=== PATIENT | female | born 1940 | race Caucasian/White ===

== ENCOUNTER 2016-05-23 | Emergency (ER) | payer MEDICARE, BC ==
[~2016-05-23] MED LIST: ACCUPRIL PO; ADVIL PM CAPLE1 EACH PO; ASPIRIN PO; ATIVAN PO; BONIVA150 MG PO; CALCIUM 500 + D1 TAB PO; CELEXA20 MG PO; CIPRO PO; CLOBETASOL 0.0560 GM TOP; DARVOCET-N 1001 TAB PO; HCTZ PO; LEVAQUIN PO; LEXAPRO PO; LOPRESSOR PO; LOSARTAN-HCTZ1 EAC1 PO; MS CONTIN PO; NAPROSYN500 MG PO; NITROGYLCERIN SUBLINGUAL; NORVASC PO; NORVASC2.5 MG PO; PATIENT'S PHARMACY; PHENERGAN PO; PLAVIX PO; PRAVACHOL PO; PRILOSEC PO; PYRIDIUM PO; TOPROL XL PO; TYLENOL PM PO; ULTRAM PO; VIT E PO; ZOCOR PO; ZOFRAN PO
== END 2016-05-23 00:23 | disposition home or self-care (01) ==
LOC: SED
DX: L29.9 Pruritus, unspecified (principal); T49.0X5A Adverse effect of local antifungal, anti-infective and anti-inflammatory drugs, initial encounter; L40.9 Psoriasis, unspecified; E78.5 Hyperlipidemia, unspecified; K21.9 Gastro-esophageal reflux disease without esophagitis; F41.9 Anxiety disorder, unspecified; Z90.49 Acquired absence of other specified parts of digestive tract; Z90.710 Acquired absence of both cervix and uterus; Z88.8 Allergy status to other drugs, medicaments and biological substances
CPT/HCPCS: 99282

== ENCOUNTER 2016-10-31 16:22 | Emergency (ER) | payer MEDICARE, BC ==
--- NOTE | ~2016-10-31 | CR72 ---
[facility]. [facility] A Service [facility] RADIOLOGY TEXT RESULTS PATIENT: TONNY WEI LOCATION: SED : 40 UNIT #: [id number] AGE: [address]: RACHEL PUENTE SEX: F ORDER DR: [id number] [place] [id number] E MR#: [id number] Acc #: [id number] NAME: TONNY WEI : 1940 SEX: F STUDY DATE/TIME: 10/31/2016 17:17 UNIT: SED ROOM: STUDY DESCRIPTION: CR Chest Single View Portable Attending Physician: Rachel Puente Aprn Ordering Physician: Rachel Puente Aprn Primary Care Physician: Ric Gutierres D.O. MEDICAL IMAGING REPORT This report is preliminary unless electronic signature is present. EXAMINATION AP portable chest. DATE 10/31/2016 HISTORY 76-year-old female with right side chest pain radiating down the right arm today. COMPARISON PA and lateral chest radiograph, 12/17/2013. FINDINGS No acute airspace disease. Stable mild upper lobe hyperinflation. Chronic-appearing interstitial markings in the lung bases. No pleural effusion or pneumothorax. Heart size is upper limits normal but stable. IMPRESSION No acute chest findings. No significant change compared to 12/17/2013. Dictated by... Mendy Molina M.D. THIS IS AN ELECTRONICALLY VERIFIED REPORT Mendy Molina M.D. at 11/01/2016 2:02 PM FARHANA/nick TD: 11/01/2016 00:01 JOB #: [id number] [facility] A Service [facility] RADIOLOGY TEXT RESULTS PATIENT: TONNY WEI LOCATION: SED : 40 UNIT #: [id number] AGE: [address]: RACHEL PUENTE SEX: F ORDER DR: MEDICAL IMAGING REPORT Page 1 of 1
--- NOTE | ~2016-10-31 | EKG ---
PATIENT: TONNY WEI UNIT #: [id number] Ventricular Rate: 62 BPM Atrial Rate: 62 BPM P-R Interval: 180 ms QRS Duration: 82 ms Q-T Interval: 434 ms QTC Calculation(Bezet): 440 ms P Rosman: 64 degrees Calculated R Rosman: 40 degrees Calculated T Rosman: 78 degrees Diagnosis Line: Normal sinus rhythm Diagnosis Line: Nonspecific ST abnormality Diagnosis Line: Abnormal ECG Diagnosis Line: No previous ECGs available Diagnosis Line: Confirmed by USMAN BRYANT MD ([id number]) on Diagnosis Line: 11/04/2016 8:22:19 AM INTERPRETING MD: MANNY MUELLER
[2016-10-31] MEDS ORDERED: METHOTREXATE2.5 MG PO (16:34)
[2016-10-31] MEDS ORDERED: VITAMIN D31000 UNIT PO (16:34)
[2016-10-31 17:22] LABS: BASOPHIL# 0.1 X10e3 (0-0.3); BASOPHIL% 0.9 % (0-2.5); EOSINOPHIL# 0.3 X10e3 (0-0.7); EOSINOPHIL% 5.4 % (0.0-7.0); HEMATOCRIT 35.4 % (35.0-45.0); HEMOGLOBIN 12.2 gm/dL (12.0-16.0); LYMPHOCYTE# 1.7 X10e3 (1.0-3.5); LYMPHOCYTE% 26.2 % (17.0-45.0); MEAN CELL VOLUME 83.6 FL (83-96); MEAN CORPUSCULAR HEMOGLOBIN 28.7 PG (28-34); MEAN CORPUSCULAR HGB CONC 34.3 g/dL (30-36); MEAN PLATELET VOLUME 8.4 FL (6.5-11.5); MONOCYTE# 0.6 X10e3 (0-1.0); MONOCYTE% 10.2 % (3.0-12.0); NEUTROPHIL# 3.6 X10e3 (1.5-7.1); NEUTROPHIL% 57.3 % (40-75); PLATELET COUNT 198 X10e3 (140-420); RED BLOOD COUNT 4.24 X10e (3.90-5.30); WHITE BLOOD COUNT 6.4 X10e3 (4.0-10.5)
[2016-10-31 17:26] LABS: DIFF IND NO
[2016-10-31 17:36] LABS: POC - CKMB 1.6 ng/mL (0.0-7.9); POC - MYOGLOBIN 38.7 ng/mL (0.0-169.0)
[2016-10-31 17:37] LABS: POC - TROPONIN <0.05 ng/mL (<=0.05)
[2016-10-31 17:42] LABS: PROTHROMBIN TIME (PATIENT) 11.7 SECONDS (9.5-12.4)
[2016-10-31 17:50] LABS: ALBUMIN SERUM 4.1 g/dL (3.5-5.0); BILIRUBIN, DIRECT 0.1 mg/dL (0.0-0.2); BILIRUBIN,INDIRECT 0.3 mg/dL (0.0-0.9); BILIRUBIN,TOTAL 0.4 mg/dL (0.2-2.0); CALCIUM SERUM 8.9 mg/dL (8.4-10.2); CREATININE SERUM 0.6 mg/dL (0.6-1.4); GLOM FILT RATE Estimated 88.5 mL/min (>60); POTASSIUM 3.3 mmol/L (3.5-5.1); PROTEIN TOTAL SERUM 7.1 g/dL (6.0-8.3)
[2016-10-31 19:00] LABS: POC - CKMB 1.3 ng/mL (0.0-7.9); POC - MYOGLOBIN 50.6 ng/mL (0.0-169.0); POC - TROPONIN <0.05 ng/mL (<=0.05)
== END 2016-10-31 19:57 | disposition home or self-care (01) ==
LOC: SED 16:22
PROVIDERS: Nurse Practitioner Family
DX: R07.89 Other chest pain (principal); Z88.5 Allergy status to narcotic agent; Z79.899 Other long term (current) drug therapy
CPT/HCPCS: 36415; 71010; 80048; 80076; 82553; 83874; 84484; 85025; 85610; 85730; 93005; 99285